=== PATIENT | male | born 1990 | race Caucasian/White ===

== ENCOUNTER 2019-01-21 10:21 | Day surgery (SDC) | payer OTHER ==
[2019-01-21] MEDS ORDERED: METHYLPREDNISOLONE ACETATE INJ 40 MG/1 ML ML ONE (11:15)
[2019-01-21] MEDS ORDERED: LIDOCAINE 2% INJ (20 MG/ML) 20 ML MDV ONE (11:15)
[2019-01-21] MEDS ORDERED: BUPIVACAINE HCL 0.5 % INJ/PF 30 ML SDV ONE (11:15)
[2019-01-21] MEDS ORDERED: LIDOCAINE 1% INJ-PF (10 MG/ML) 30 ML SDV ONE (11:15)
[2019-01-21] MEDS ORDERED: FENTANYL CITRATE INJ/PF 100 MCG/2 ML AMPUL ONE (12:26)
[2019-01-21 13:12] VITALS: BP 118/64
--- NOTE | 2019-01-21 16:01 | Operative Report ---
PREOPERATIVE DIAGNOSIS: cervical spondylosis POSTOPERATIVE DIAGNOSIS:cervical spondylosis PROCEDURE: RIGHT SIDE 1. C4 facet joint radiofrequency denervation 2. C5 facet joint radiofrequency denervation 3. C6 facet joint radiofrequency denervation 4. C7 facet joint radiofrequency denervation DATE OF PROCEDURE: [01/21/19] ANESTHESIA: [local, IV fentanyl] COMPLICATIONS: [none] ESTIMATED BLOOD LOSS: [5 cc] PROCEDURE IN DETAIL: informed consent was given and signed informed consent document was obtained. A full description of the procedure was provided including benefits, as well as possible complications including transient increased pain, short term tremulusness, headaches, stomach irritation, mood alteration, as well as more uncommon nerve injury, bleeding, infection or gene rgic reaction The patient was brought to the operating room and placed on the exam table in a comfortable left lateral decubitus position. The place for the needle placement was obtained by manual palpation as well as radiographic confirmation. The sterile field was prepped by chlorhexidine and sterile drapes. Local anesthesia, both superficial and deep was provided by local infiltration of [8 ml Lidocaine 1%]. Using fluoroscopic guidance, a 17-guage (75mm) insulated sharp radiofrequency needle with a 2 mm active tip was placed overlying the right C4 cervical vertebra from the posterior-lateral approach and was advanced until bony contact was felt with the articular pillar. The needle was walked off the pillar, maintaining contact with the bone. Attempted aspiration revealed no blood or c erebrospinal fluid. Radiographs were then made in lateral view. Motor testing was then performed with 2.0 volts and no upper extremity motor stimulation was observed. 1 cc of the 5ml Lidocaine was injected through the RF needle. A radiofrequency lesion of the medial branch of C4 was then performed at 80 degrees C for 1 minutes and 30 seconds. The same procedure was repeated for bilateral C5 and C6 and C7 medial branches. The patient tolerated the procedure well. He was taken to recovery in good condition. He was provided with instructions as to what to expect. He was also provided with contact information and instructed to call regarding any concerning symptoms or questions. IMPRESSION: 1. Successful right sided C4, C5, and C6 and C7 cervical medial branch radiofrequency ablation. 2. Follow-up in [6] weeks to assess the efficacy of this procedure.
== END 2019-01-21 13:30 | disposition home or self-care (01) ==
LOC: EDSEX → RAD 10:21
PROVIDERS: ATTEND Student in an Organized Health Care Education/Training Program
DX: M47.812 Spondylosis without myelopathy or radiculopathy, cervical region (principal)
CPT/HCPCS: 64634; J3490 ×3; J3010; J1030